=== PATIENT | male | born 1960 | race Caucasian/White ===

== ENCOUNTER → 2023-06-13 | Outpatient (CLI) | payer OTHER ==
[~2023-06-13] MED LIST: CEPHALEXIN500 M1 PO; COGENTIN 2MG2 MG/TA1 PO; FLOMAX 0.40.4 MG/CAP PO; LAMICTAL 100MG100 MG PO; PROAIR HFA0.09 MG/AC IH; SEROQUEL XR400 M1 PO; VALU-DRYL ALLER25 MG PO; VITAMIN D31000 I1 PO; VITAMIN E1000 U/CAP PO; ZESTRIL 10MG10 MG PO; ZOLOFT 50MG50 MG PO
== END ==
LOC: MHCPAIN 10:35
DX: M79.18 Myalgia, other site (principal); M54.2 Cervicalgia; M25.512 Pain in left shoulder; M48.02 Spinal stenosis, cervical region
CPT/HCPCS: G0463; J0665; J1040

== ENCOUNTER → 2023-07-11 | Outpatient (CLI) | payer OTHER | LOC: MHCPAIN 08:48 | DX: M54.12 Radiculopathy, cervical region (principal); M54.6 Pain in thoracic spine; M96.1 Postlaminectomy syndrome, not elsewhere classified; G95.9 Disease of spinal cord, unspecified | CPT/HCPCS: G0463 ==

== ENCOUNTER → 2023-11-26 | Outpatient (CLI) | payer OTHER | LOC: MHCPAIN 10:04 | DX: M48.02 Spinal stenosis, cervical region (principal); M41.86 Other forms of scoliosis, lumbar region; M47.816 Spondylosis without myelopathy or radiculopathy, lumbar region; Z98.1 Arthrodesis status | CPT/HCPCS: G0463 ==

== ENCOUNTER 2023-12-03 11:10 | Emergency (ER) | payer OTHER ==
[~2023-12-03] VITALS: Ht 182.9 cm; Wt 97.7 kg
[2023-12-03 11:19] VITALS: TEMP 97.6
[2023-12-03] MEDS ORDERED: NS 1,000 ML IV ONE (11:45)
[2023-12-03 12:00] LABS: BASO # 0.1 K/mm3 (0.0-0.2); BASO % 0.4 % (0.0-2.0); EOS # 0.1 K/mm3 (0.0-0.7); EOS % 0.4 % (0.0-4.0); GRAN # 11.3 K/mm3 (1.4-6.5); GRAN % 82.4 % (42.2-75.2); HEMATOCRIT 50.5 % (42.0-52.0); HEMOGLOBIN 16.7 g/dl (13.5-18.0); LYMPH # 1.4 K/mm3 (1.2-3.4); LYMPH % 9.8 % (20.0-51.0); MEAN CELL VOLUME 94 fl (80.0-100.0); MEAN CORPUSCULAR HEMOGLOBIN 31 pg (27-31); MEAN CORPUSCULAR HGB CONC 33 g/dl (33.0-37.0); MEAN PLATELET VOLUME 9.8 fl (7.4-10.4); MONO # 0.8 K/mm3 (0.1-0.6); MONO % 5.8 % (1.7-9.3); PLATELET COUNT 377 K/mm3 (130-400); REDCELL DISTRIBUTION WIDTH-CV 13.2 % (11.5-14.5)
[2023-12-03 12:18] LABS: ALANINE AMINOTRANSFERASE 20 U/L (0-55); ALBUMIN 3.8 g/dL (3.4-4.8); ALKALINE PHOSPHATASE 95 U/L (40-150); ANION GAP 12 mmol/L (7-16); AST,SGOT 16 U/L (5-34); BILIRUBIN,TOTAL 0.6 mg/dL (0.2-1.2); BLOOD UREA NITROGEN 13 mg/dL (8-26); CHLORIDE 106 mEq/L (98-107); CREATININE, serum 1.93 mg/dL (0.72-1.25); GLUCOSE 105 mg/dL (70-99); POTASSIUM 4.4 mEq/L (3.5-4.5); SODIUM 139 mEq/L (136-145); TOTAL PROTEIN 7.1 g/dl (6.2-8.1)
[2023-12-03 12:25] LABS: TROPONIN-I < 0.010 ng/mL (0.00-0.033)
[2023-12-03 17:06] LABS: PH 5.5 (5.0-8.5); URINE APPEARANCE CLEAR (CLEAR/HAZY); URINE BLOOD NEGATIVE (NEGATIVE); URINE COLOR YELLOW (YELLOW); URINE GLUCOSE NEGATIVE (NEGATIVE); URINE KETONE NEGATIVE (NEGATIVE); URINE NITRATE NEGATIVE (NEGATIVE); URINE PROTEIN(semi-quant) NEGATIVE (BEGATIVE); URINE UROBILINOGEN 0.2 E.U/dL (0.2-1.0)
[2023-12-03 17:08] LABS: MUCOUS PRESENT (NOT PRESENT); URINE RBC 0-2 /hpf (0-2)
[2023-12-03 17:09] LABS: URINE BACTERIA OCCASIONAL /hpf (NONE SEEN)
[2023-12-03 17:11] LABS: COLLECTION METHOD CLEAN CATCH
[2023-12-03 17:39] VITALS: BP 123/88; PULSE 60
== END 2023-12-03 17:43 | disposition home or self-care (01) ==
LOC: COL.ER 11:10
PROVIDERS: Physician Assistant
DX: I95.9 Hypotension, unspecified (principal); D72.829 Elevated white blood cell count, unspecified; R74.02 Elevation of levels of lactic acid dehydrogenase [LDH]; F17.210 Nicotine dependence, cigarettes, uncomplicated
CPT/HCPCS: J7030

== ENCOUNTER → 2023-12-11 | Outpatient (CLI) | payer OTHER | LOC: MHCPAIN 12:27 | DX: M41.86 Other forms of scoliosis, lumbar region (principal); M47.816 Spondylosis without myelopathy or radiculopathy, lumbar region; M54.17 Radiculopathy, lumbosacral region; M54.50 Low back pain, unspecified | CPT/HCPCS: G0463 ==

== ENCOUNTER → 2024-01-17 | Outpatient (CLI) | payer OTHER ==
[~2024-01-17] MED LIST changes: +Atropine 1 MG/10 ML SYRINGE IV ONE; +Glycopyrrolate 0.2 MG/ML 1 ML VIAL ONE; +Lidocaine PF 2% (20 MG/ML) 5 ML VIAL ONE; +Midazolam 2 MG/2 ML VIAL ONE; +ePHEDrine 50 MG/10 ML VIAL IV ONE; +fentaNYL 50 MCG/ML 2 ML VIAL ONE
== END ==
LOC: MHCPAIN 12-03 07:28
DX: M47.817 Spondylosis without myelopathy or radiculopathy, lumbosacral region (principal); M54.50 Low back pain, unspecified
CPT/HCPCS: J0461; J0665; J2250; J3010